=== PATIENT | female | born 1950 | race Caucasian/White ===

== ENCOUNTER → 2016-12-03 | Outpatient (CLI) | payer OTHER ==
[~2016-12-03] MED LIST: ASCO1CAP3 PO; ASPI81TA28 PO; AZEL0.15; CHOL100010 PO; FEXO1TAB46 PO; FISHOIL PO; FOLI1TAB7 PO; IBUP1CAP9 PO; MONT1TAB3 PO; NXM/40 PO; SIMV40TA2 PO; TRIA1SPR2 NAE; VITA400C15 PO
[2016-12-03 10:02] LABS: CHOLESTEROL/HDL RATIO 3.4; THYROID STIMULATING HORMONE 1.21 uIu/ml (0.300-4.500)
== END | disposition home or self-care (01) ==
LOC: C.LAB 08:15
PROVIDERS: ATTEND Internal Medicine Endocrinology, Diabetes & Metabolism
DX: Z82.49 Family history of ischemic heart disease and other diseases of the circulatory system (principal); Z13.29 Encounter for screening for other suspected endocrine disorder